=== PATIENT | female | born 1935 | race Caucasian/White ===

== ENCOUNTER 2016-08-08 20:15 | Inpatient (IN) | payer MEDICARE ==
[2016-08-05 14:32] LABS: CHOL/HDL RATIO(NOT ORDER) 2.3 (0-5)
--- NOTE | ~2016-08-08 | OP ---
Record Of Operation [facility] [address] [place]. [address] NAME: SANTOS GALLEGO : 33 STATUS : ADM IN PAT#: [id number] AGE: 81 ADM/REG DATE : 08/08/16 MR#: [id number] REPORT SERV DATE: 08/12/16 DICTATED BY: DEBBIE HORTON JR. DATE: 08/12/16 REPORT STATUS : Draft TRANSCRIBED BY: MODL DATE: 08/12/16 DATE OF PROCEDURE: 08/12/2016 SURGEON: Debbie Horton M.D. YARN CLEANER: Mike Lloyd. PROCEDURE: Laparoscopic cholecystectomy. PREOPERATIVE DIAGNOSIS: Cholecystitis. POSTOPERATIVE DIAGNOSIS: Cholecystitis. ANESTHESIA: General. INDICATIONS: This patient has history of abdominal pain. She has an abnormal HIDA scan, and cholecystectomy is indicated. She does have significant cardiac disease, was actually admitted by our aircraft fuselage framer . Cardiac function is in optimal condition, and she is ready for surgery. She had been on anticoagulation but this was reversed. FINDINGS: On laparoscopic examination of abdomen, there is evidence of inflammation of gallbladder, both acute and chronic. It was removed successfully, and the liver does have a somewhat congested appearance consistent with her cardiac disease, and no other apparent abnormalities were identified. PROCEDURE: With adequate general anesthesia, the patient was placed in supine position. The abdomen was prepped and draped sterilely. About 0.5% Marcaine was used for local infiltration of all trocar sites. An infraumbilical incision was made. The dissection was carried down sharply through the subcutaneous tissues. The fascia and perineum were opened. The peritoneum cavity was entered, and a balloon-tipped trocar was introduced. The abdomen was insufflated with CO2. The laparoscope was introduced with the above-noted findings. Under direct vision, a 12 mm trocar was placed in the epigastric region and then two 5 mm trocars in the subcostal region. The gallbladder was identified, grasped, retracted in a cephalad manner. The cystic duct and artery were identified, doubly clipped and divided. The gallbladder was removed from its bed with electrocautery. It was extracted and submitted to Pathology. Bleeding within the bed was controlled with electrocautery and Surgiflo. It was irrigated thoroughly with saline. There was no evidence of any bleeding or bile leak. Then, all trocars were removed under direct vision. The umbilical site and the epigastric site were closed at the fascial layer with [id number] 0 PDS. All wounds were then closed with dermal Monocryl. Sterile dressings were applied. The patient left the operating room in satisfactory condition. ESTIMATED BLOOD LOSS: 10 mL. Record Of Operation [address] [address] NAME: SANTOS GALLEGO : 33 STATUS : ADM IN [facility]#: [id number] AGE: 81 ADM/REG DATE : 08/08/16 MR#: [id number] REPORT SERV DATE: 08/12/16 DICTATED BY: DEBBIE HORTON JR. DATE: 08/12/16 REPORT STATUS : Draft TRANSCRIBED BY: NANCY DATE: 08/12/16 HUEY/NANCY Debbie Horton Jr., M.D. / [id number] CC: Isabel Wayne PA
--- NOTE | ~2016-08-08 | DS ---
Discharge Summary [address] [place]. [address] NAME: SANTOS GALLEGO : 33 STATUS : DIS IN PAT#: [id number] AGE: 81 ADM/REG DATE : 08/08/16 MR#: [id number] REPORT SERV DATE: 08/26/16 DICTATED BY: BREEZY HAIR DATE: 08/25/16 REPORT STATUS : Draft TRANSCRIBED BY: MODGallito DATE: 08/25/16 Data Collection from hospitalization DISCHARGE DIAGNOSES: 1. Ischemic cardiomyopathy. 2. Paroxysmal atrial fibrillation. 3. Left bundle-branch block. 4. Nonsustained ventricular tachycardia. 5. Cholecystitis status post laparoscopic cholecystectomy. 6. History of transient ischemic attack. 7. Chronic systolic congestive heart failure. CONSULTATION: Dr. Guero Knight. PROCEDURES PERFORMED: Laparoscopic cholecystectomy, 08/12/2016. PATHOLOGY: Gallbladder, cholecystectomy-minimal histologic changes. See description. DISCHARGE MEDICATIONS: Cordarone 200 mg twice a day, aspirin 81 mg every morning, Lipitor 20 mg at bedtime, Bumex 1 mg twice a day, vitamin D3 1000 units every evening, vitamin B12 1000 mcg every 30 days as instructed, Boniva 150 mg every 30 days as instructed, Synthroid 50 mcg before breakfast, Lopressor 50 mg twice a day, multivitamins with minerals one tablet every evening, Debrox wax removal one dose OT daily as needed, Jantoven 4 mg every evening. CONDITION AT DISCHARGE: Stable. DISPOSITION: The patient was discharged home on a low-sodium diet with activities as instructed. She would follow up with Dr. Chano Duckworth seven days following discharge. She would follow up with Dr. Breezy Hair three to four weeks following discharge. She was to follow up in the [facility] every two to three weeks following discharge. HOSPITAL COURSE: This is an 81-year-old female, who I recently saw on 08/05/2016 with complaints of increased shortness of breath and lower extremity edema. The plan was to have the patient better rate control by switching her from carvedilol to metoprolol and postpone her elective cholecystectomy until she could be improved. She presented to the hospital when she had increasing shortness of breath to the point where she felt like she could not breathe at all and had increased lower extremity edema. Overnight, she was diuresed with Bumex and had a good urine output at 1.6 L. She felt like her heart rate was better controlled. She was less short of breath and her lower extremity edema had improved. She was admitted to the hospital at this time for further evaluation and treatment. Upon admission, she was felt to have esmfm-zt-hvmnizk systolic heart failure and persistent atrial fibrillation. She has hypokalemia and acute kidney insufficiency. She has a supratherapeutic INR level. She has hypothyroidism with mildly subtherapeutic levothyroxine. Echocardiogram was recommended to re-evaluate her left ventricular systolic function. IV Bumex was going to be continued for diuresis. She was going to be changed to metoprolol succinate. Electrolyte replacement protocol was going to be arranged. She was going to undergo cardioversion in hopes of restoring sinus rhythm and further improving her Discharge Summary [address] [place]. [address] NAME: SANTOS GALLEGO : 33 STATUS : DIS IN PAT#: [id number] AGE: 81 ADM/REG DATE : 08/08/16 MR#: [id number] REPORT SERV DATE: 08/26/16 DICTATED BY: BREEZY HAIR DATE: 08/25/16 REPORT STATUS : Draft TRANSCRIBED BY: NANCY DATE: 08/25/16 symptoms. We would titrate the warfarin. The following day, an echocardiogram was performed. Coumadin was being held. She has 1+ bilateral lower extremity edema. IV Bumex was continued. INR level was 3.7. Levothyroxine was increased. On the , she was seen by Dr. Guero Knight. She had complained of abdominal pain. She had an abnormal HIDA scan and it was felt that cholecystectomy was indicated. She was felt to have cholecystitis. Treatment options were discussed and it was elected to proceed with surgical intervention. On the , the patient was taken to the operating room by Dr. Guero Knight, where she underwent the above-mentioned procedure. She tolerated this well and there were no complications. Over the next couple of days, she continued to progress. INR level was 1.8. Discharge planning was performed. IV amiodarone was stopped. She was changed to oral maintenance. Gentle diuresis was being performed. On 08/14/2016, she was alert and cooperative. Discharge instructions were given. Due to her improved and stable condition, she was discharged home with the above-stated instructions. Information collected by: Annabel Verma I submit the above information as my discharge summary. BRITTA/NANCY Breezy Hair M.D. / [id number] CC: Isabel Wayne M.D. John Gwin Jr., M.D.
--- NOTE | ~2016-08-08 | HP ---
History And Physical [address] [place]. [address] NAME: SANTOS GALLEGO : 33 STATUS : ADM Farhat PAT#: [id number] AGE: 81 ADM/REG DATE : 08/08/16 MR#: [id number] REPORT SERV DATE: 08/09/16 DICTATED BY: DATE: REPORT STATUS : Draft TRANSCRIBED BY: MODL DATE: 08/09/16 DATE OF ADMISSION: 08/08/2016 CHIEF COMPLAINT/REASON FOR ADMISSION: Atrial fibrillation and congestive heart failure. PRIMARY YARN MAN: Breezy Hair M.D. HISTORY OF PRESENT ILLNESS: Mrs. Gallego is a very pleasant 81-year-old female, who recently saw Dr. Hair on 08/05 with complaints of increased shortness of breath and lower extremity edema. The plan was to have the patient better rate controlled, switching her from carvedilol to metoprolol, and postpone her elective cholecystectomy until she can be improved. She presented to the hospital when she had increasing shortness of breath to the point where she felt like she could not breathe at all and increased lower extremity edema. Overnight, she was diuresed with Bumex with a good urine output of 1.6 L. she feels like her heart rate is better controlled, she is less short of breath, and her lower extremity edema has improved. PAST MEDICAL HISTORY: 1. Persistent atrial fibrillation. 2. Long-term use of anticoagulants. 3. Coronary artery disease with 75% first ostial stenosis. 4. Hyperlipidemia. 5. Chronic systolic heart failure with an ejection fraction of 31% in 08/2015. 6. History of TIA. 7. Left bundle-branch block. SOCIAL HISTORY: The patient is . She does not smoke, drink, or use extracurricular drugs. FAMILY HISTORY: Noncontributory. ALLERGIES: NO KNOWN DRUG ALLERGIES. OUTPATIENT MEDICATIONS: Include: 1. Aspirin 81 mg p.o. daily. 2. Atorvastatin 20 mg p.o. daily. 3. Metoprolol 50 mg p.o. b.i.d. 4. Hydrochlorothiazide. 5. Jantoven. 6. Ramipril 5 mg p.o. daily. REVIEW OF SYSTEMS: All systems were reviewed and are negative, except that the patient complains of decreased appetite. She denies any chest pain. There was no orthopnea or paroxysmal nocturnal dyspnea. All other systems were reviewed and are negative. History And Physical [address] [address] NAME: SANTOS GALLEGO : 33 STATUS : ADM Farhat PAT#: [id number] AGE: 81 ADM/REG DATE : 08/08/16 MR#: [id number] REPORT SERV DATE: 08/09/16 DICTATED BY: DATE: REPORT STATUS : Draft TRANSCRIBED BY: MODL DATE: 08/09/16 PHYSICAL EXAMINATION: VITAL SIGNS: Blood pressure has ranged from 119 to 120 over 67 to 78, respirations 18, pulses range from 103 to 114 beats per minute, oxygen saturation is 99% on 2 L nasal cannula. GENERAL: Ms. Gallego is a cachectic 81-year-old female. She is currently able to lie flat, in no acute distress. NECK: No jugular venous distention. No carotid bruits. HEART: Irregular, rate controlled. Soft S1 and S2. I could not appreciate murmurs, rubs, or gallops. LUNGS: Clear to auscultation in all gong. ABDOMEN: Soft and nontender. EXTREMITIES: There is +1 edema at the ankles bilaterally. MUSCULOSKELETAL: No clubbing or cyanosis of the digits. NEUROLOGIC: The patient appears fatigued without focal neurologic deficits. REVIEW OF TEST RECORDS AND MEDICAL DECISION MAKING: Potassium 2.8, replaced and is now 3.7; sodium 140; BUN 35; creatinine 1.13; glucose 105. BNP on admission is 2841. TSH is 6.6. Hemoglobin 11.8, hematocrit 34.1, platelet count is 216. An EKG performed on admission documented atrial fibrillation with rapid ventricular response at 120 beats per minute. There is a left bundle-branch block present. This is without significant change from a previous EKG performed in clinic on 08/05/2016. A chest x-ray performed on admission demonstrated cardiomegaly. There was mild central congestion, but there was no evidence of any pleural effusions present. IMPRESSION REPORT AND PLAN: 1. Acute on chronic systolic heart failure. 2. Persistent atrial fibrillation. 3. Hypokalemia. 4. Acute kidney insufficiency. 5. Supratherapeutic INR. 6. Hypothyroidism with mildly subtherapeutic levothyroxine. 7. Hyperlipidemia. RECOMMENDATIONS: 1. Would recommend echocardiogram to re-evaluate her left ventricular systolic function. 2. Continue diuresis with Bumex 2 mg IV twice per day. 3. Would change the patient to metoprolol succinate in light of her decreased systolic function, we will continue her home dose at 50 mg twice per day. 4. We will arrange for electrolyte replacement protocol. 5. We will arrange for cardioversion in hopes of restoring sinus rhythm and further improving the patient's symptoms. 6. Titrate warfarin for goal INR of 2 to 3. 7. Additional recommendations pending clinical course. It has been my pleasure to participate in the care of this pleasant lady. History And Physical [address] [place]. [address] NAME: SANTOS GALLEGO : 33 STATUS : ADM Farhat PAT#: [id number] AGE: 81 ADM/REG DATE : 08/08/16 MR#: [id number] REPORT SERV DATE: 08/09/16 DICTATED BY: DATE: REPORT STATUS : Draft TRANSCRIBED BY: NANCY DATE: 08/09/16 [facility]/NANCY Hazel Moore M.D. / [id number] CC: Isabel Wayne M.D.
[2016-08-08 19:53] LABS: BASOPHILS 0.1 %; BASOPHILS ABSOLUTE 0.01 10/3/uL (0.0-0.16); EOSINOPHILS 0.9 %; EOSINOPHILS ABSOLUTE 0.06 10/3/uL (0.0-0.53); HEMATOCRIT 36.7 % (36.0-48.0); HEMOGLOBIN 12.7 g/dL (12.0-16.0); IMMATURE GRANULOCYTES 0.1 %; IMMATURE GRANULOCYTES ABSOLUTE 0.01 10/3/uL (0.0-0.11); LYMPHOCYTES 30.1 %; LYMPHOCYTES ABSOLUTE 2.08 10/3/uL (0.67-4.30); MEAN CORPUS HGB CONC 34.6 g/dL (32.0-36.0); MEAN CORPUSCULAR HEMOGLOB 32.8 pg (26.0-34.0); MEAN CORPUSCULAR VOLUME 94.8 fL (80-100); MEAN PLATELET VOLUME 10.8 fL (9.2-13.0); MONOCYTES 11.7 %; MONOCYTES ABSOLUTE 0.81 10/3/uL (0.21-1.20); NEUTROPHILS 57.1 %; NEUTROPHILS ABSOLUTE 3.93 10/3/uL (2.02-8.40); PLATELET COUNT 252 10/3/uL (150-400); RBC DISTRIBUTION WIDTH 16.1 % (12.0-16.0); RED CELL COUNT 3.87 10/6/uL (4.0-5.6); WHITE BLOOD CELLS 6.9 10/3/uL (4.5-10.5)
[2016-08-08 19:55] LABS: MANUAL DIFF NO %
[2016-08-08 20:01] LABS: INTERNATIONAL NORMAL RATI 3.7 UNITS (-); PARTIAL THROMBO TIME 39.5 SEC (22.5-37.2); PROTIME (NOT ORD) 36.3 SEC (12.0-14.5)
[2016-08-08 20:14] LABS: CALCIUM, SERUM 9.5 MG/DL (8.5-10.4); CHEST PAIN PROFILE TAT 0 Hrs 25 Mins; CHLORIDE, SERUM 99 MMOL/L (96-112); GFR AFRICAN AMERICAN 38 ML/MIN (>=60); GFR NON AFRICAN AMERICAN 33 ML/MIN (>=60); GLUCOSE, SERUM 112 MG/DL (60-99); POTASSIUM, SERUM 4.1 MMOL/L (3.5-5.3); SODIUM, SERUM 138 MMOL/L (135-148); TROPONIN I 0.04 NG/ML (<0.05)
[2016-08-08 20:15] LABS: BUN (BLOOD UREA NITROGEN) 39 MG/DL (6-23); CO2 (CARBON DIOXIDE) 24 MMOL/L (24-34); CREATININE 1.46 MG/DL (0.55-1.02)
[~2016-08-08 20:15] MED LIST: ALTA5 PO; B121000P IM/SC; BONIVA150 MG PO; CARBAMIDE PEROXIDE OT; HALF81 PO; JANTOVEN4 MG PO; L20 PO; LIPITOR20 PO; LOP50 PO; MULTIVIT/MIN PO; SYN.05 PO; VITAMIN D31000 UNIT PO
[2016-08-08 21:30] LABS: ASCORBIC ACID (UR NOT ORDER) NEG (NEG); BILIRUBIN, URINE NEGATIVE (NEG); ER URINALYSIS TAT 0 Hrs 08 Mins; KETONE, URINE NEGATIVE (NEG); LEUKOCYTE ESTERASE(NOT OR LARGE (NEG); NITRITE (URINE) NEG (NEG); WBC (NOT ORDERED) (RFLEX) 24 (0-5)
[2016-08-09 05:49] LABS: BASOPHILS 0 %; EOSINOPHILS 0.2 %; EOSINOPHILS ABSOLUTE 0.01 10/3/uL (0.0-0.53); HEMATOCRIT 34.1 % (36.0-48.0); HEMOGLOBIN 11.8 g/dL (12.0-16.0); IMMATURE GRANULOCYTES 0.2 %; IMMATURE GRANULOCYTES ABSOLUTE 0.01 10/3/uL (0.0-0.11); LYMPHOCYTES 22.8 %; LYMPHOCYTES ABSOLUTE 1.43 10/3/uL (0.67-4.30); MEAN CORPUS HGB CONC 34.6 g/dL (32.0-36.0); MEAN CORPUSCULAR HEMOGLOB 32.4 pg (26.0-34.0); MEAN CORPUSCULAR VOLUME 93.7 fL (80-100); MEAN PLATELET VOLUME 10.2 fL (9.2-13.0); MONOCYTES ABSOLUTE 0.63 10/3/uL (0.21-1.20); NEUTROPHILS 66.8 %; NEUTROPHILS ABSOLUTE 4.19 10/3/uL (2.02-8.40); PLATELET COUNT 216 10/3/uL (150-400); RBC DISTRIBUTION WIDTH 15.7 % (12.0-16.0); RED CELL COUNT 3.64 10/6/uL (4.0-5.6); WHITE BLOOD CELLS 6.3 10/3/uL (4.5-10.5)
[2016-08-09 05:53] LABS: MANUAL DIFF NO %
[2016-08-09 06:04] LABS: CALCIUM, SERUM 9.1 MG/DL (8.5-10.4); CHLORIDE, SERUM 100 MMOL/L (96-112); CO2 (CARBON DIOXIDE) 25 MMOL/L (24-34); CREATININE 1.13 MG/DL (0.55-1.02); GFR AFRICAN AMERICAN 52 ML/MIN (>=60); GFR NON AFRICAN AMERICAN 45 ML/MIN (>=60); GLUCOSE, SERUM 105 MG/DL (60-99); SODIUM, SERUM 140 MMOL/L (135-148)
[2016-08-09 06:08] LABS: BUN (BLOOD UREA NITROGEN) 35 MG/DL (6-23); POTASSIUM, SERUM 2.8 MMOL/L (3.5-5.3)
[2016-08-10 06:19] LABS: BASOPHILS 0.1 %; BASOPHILS ABSOLUTE 0.01 10/3/uL (0.0-0.16); EOSINOPHILS 0.5 %; EOSINOPHILS ABSOLUTE 0.04 10/3/uL (0.0-0.53); HEMOGLOBIN 12.7 g/dL (12.0-16.0); IMMATURE GRANULOCYTES 0.1 %; IMMATURE GRANULOCYTES ABSOLUTE 0.01 10/3/uL (0.0-0.11); LYMPHOCYTES ABSOLUTE 1.91 10/3/uL (0.67-4.30); MEAN CORPUS HGB CONC 33.8 g/dL (32.0-36.0); MEAN CORPUSCULAR HEMOGLOB 32.5 pg (26.0-34.0); MEAN CORPUSCULAR VOLUME 96.2 fL (80-100); MEAN PLATELET VOLUME 11.1 fL (9.2-13.0); MONOCYTES 8.4 %; MONOCYTES ABSOLUTE 0.62 10/3/uL (0.21-1.20); NEUTROPHILS 64.9 %; NEUTROPHILS ABSOLUTE 4.75 10/3/uL (2.02-8.40); PLATELET COUNT 224 10/3/uL (150-400); RBC DISTRIBUTION WIDTH 16.2 % (12.0-16.0); RED CELL COUNT 3.91 10/6/uL (4.0-5.6); WHITE BLOOD CELLS 7.3 10/3/uL (4.5-10.5)
[2016-08-10 06:20] LABS: HEMATOCRIT 37.6 % (36.0-48.0); MANUAL DIFF NO %
[2016-08-10 06:27] LABS: INTERNATIONAL NORMAL RATI 3.1 UNITS (-); PROTIME (NOT ORD) 31.9 SEC (12.0-14.5)
[2016-08-10 06:36] LABS: CALCIUM, SERUM 9.1 MG/DL (8.5-10.4); CHLORIDE, SERUM 98 MMOL/L (96-112); CREATININE 1.12 MG/DL (0.55-1.02); GFR AFRICAN AMERICAN 53 ML/MIN (>=60); GFR NON AFRICAN AMERICAN 45 ML/MIN (>=60); GLUCOSE, SERUM 103 MG/DL (60-99); POTASSIUM, SERUM 3.3 MMOL/L (3.5-5.3); SODIUM, SERUM 142 MMOL/L (135-148)
[2016-08-10 06:39] LABS: BUN (BLOOD UREA NITROGEN) 30 MG/DL (6-23); CO2 (CARBON DIOXIDE) 31 MMOL/L (24-34)
[2016-08-10 09:59] LABS: FREE T4 2.24 NG/DL (0.76-1.46)
[2016-08-10 10:02] LABS: ULTRASENSITIVE TSH 4.86 MCIU/ML (0.358-3.740)
[2016-08-11 07:37] LABS: INTERNATIONAL NORMAL RATI 3.8 UNITS (-); PROTIME (NOT ORD) 37.1 SEC (12.0-14.5)
[2016-08-11 07:41] LABS: CALCIUM, SERUM 9.2 MG/DL (8.5-10.4); CHLORIDE, SERUM 98 MMOL/L (96-112); POTASSIUM, SERUM 3.9 MMOL/L (3.5-5.3); SODIUM, SERUM 136 MMOL/L (135-148)
[2016-08-11 07:42] LABS: BUN (BLOOD UREA NITROGEN) 34 MG/DL (6-23); CO2 (CARBON DIOXIDE) 23 MMOL/L (24-34); CREATININE 1.83 MG/DL (0.55-1.02); GFR AFRICAN AMERICAN 29 ML/MIN (>=60); GFR NON AFRICAN AMERICAN 25 ML/MIN (>=60); GLUCOSE, SERUM 137 MG/DL (60-99)
[2016-08-12 04:32] LABS: INTERNATIONAL NORMAL RATI 2.7 UNITS (-); PROTIME (NOT ORD) 28.7 SEC (12.0-14.5)
[2016-08-12 04:46] LABS: A/G RATIO 1.2 (0.7-1.9); ALBUMIN 3.3 G/DL (3.5-5.0); ALKALINE PHOSPHATASE 66 U/L (45-117); CALCIUM, SERUM 8.6 MG/DL (8.5-10.4); CHLORIDE, SERUM 95 MMOL/L (96-112); CO2 (CARBON DIOXIDE) 23 MMOL/L (24-34); CREATININE 2.04 MG/DL (0.55-1.02); GFR AFRICAN AMERICAN 25 ML/MIN (>=60); GFR NON AFRICAN AMERICAN 22 ML/MIN (>=60); GLOBULIN 2.7 G/DL (2.5-4.1); GLUCOSE, SERUM 124 MG/DL (60-99); POTASSIUM, SERUM 3.8 MMOL/L (3.5-5.3); SGOT(AST) 892 U/L (5-40); SGPT(ALT) 1072 U/L (5-65); SODIUM, SERUM 133 MMOL/L (135-148); TOTAL BILIRUBIN 3.7 MG/DL (0-1.2)
[2016-08-12 04:47] LABS: BUN (BLOOD UREA NITROGEN) 46 MG/DL (6-23)
[2016-08-12 04:56] LABS: BASOPHILS 0.1 %; BASOPHILS ABSOLUTE 0.01 10/3/uL (0.0-0.16); EOSINOPHILS 0.1 %; EOSINOPHILS ABSOLUTE 0.01 10/3/uL (0.0-0.53); HEMATOCRIT 36.9 % (36.0-48.0); HEMOGLOBIN 12.5 g/dL (12.0-16.0); IMMATURE GRANULOCYTES 0.2 %; IMMATURE GRANULOCYTES ABSOLUTE 0.02 10/3/uL (0.0-0.11); LYMPHOCYTES 14.9 %; LYMPHOCYTES ABSOLUTE 1.68 10/3/uL (0.67-4.30); MEAN CORPUS HGB CONC 33.9 g/dL (32.0-36.0); MEAN CORPUSCULAR HEMOGLOB 32.3 pg (26.0-34.0); MEAN CORPUSCULAR VOLUME 95.3 fL (80-100); MEAN PLATELET VOLUME 11.3 fL (9.2-13.0); MONOCYTES 7.5 %; MONOCYTES ABSOLUTE 0.85 10/3/uL (0.21-1.20); NEUTROPHILS 77.2 %; PLATELET COUNT 186 10/3/uL (150-400); RBC DISTRIBUTION WIDTH 16.5 % (12.0-16.0); RED CELL COUNT 3.87 10/6/uL (4.0-5.6)
[2016-08-12 04:57] LABS: WHITE BLOOD CELLS 11.3 10/3/uL (4.5-10.5)
[2016-08-12 04:58] LABS: MANUAL DIFF NO %
[2016-08-12 14:53] LABS: INTERNATIONAL NORMAL RATI 2.6 UNITS (-); PROTIME (NOT ORD) 27.5 SEC (12.0-14.5)
[2016-08-12 16:35] LABS: INTERNATIONAL NORMAL RATI 1.8 UNITS (-); PARTIAL THROMBO TIME 32.6 SEC (22.5-37.2); PROTIME (NOT ORD) 21.1 SEC (12.0-14.5)
[2016-08-13 04:52] LABS: BASOPHILS 0 %; EOSINOPHILS 0.1 %; EOSINOPHILS ABSOLUTE 0.01 10/3/uL (0.0-0.53); HEMATOCRIT 39.8 % (36.0-48.0); HEMOGLOBIN 13.7 g/dL (12.0-16.0); IMMATURE GRANULOCYTES 0.3 %; IMMATURE GRANULOCYTES ABSOLUTE 0.03 10/3/uL (0.0-0.11); LYMPHOCYTES 13.8 %; LYMPHOCYTES ABSOLUTE 1.38 10/3/uL (0.67-4.30); MEAN CORPUS HGB CONC 34.4 g/dL (32.0-36.0); MEAN CORPUSCULAR HEMOGLOB 32.9 pg (26.0-34.0); MEAN CORPUSCULAR VOLUME 95.7 fL (80-100); MEAN PLATELET VOLUME 11.6 fL (9.2-13.0); MONOCYTES 6.8 %; MONOCYTES ABSOLUTE 0.68 10/3/uL (0.21-1.20); PLATELET COUNT 188 10/3/uL (150-400); RBC DISTRIBUTION WIDTH 16.5 % (12.0-16.0); RED CELL COUNT 4.16 10/6/uL (4.0-5.6)
[2016-08-13 05:03] LABS: MANUAL DIFF NO %
[2016-08-13 05:05] LABS: ALKALINE PHOSPHATASE 71 U/L (45-117); BUN (BLOOD UREA NITROGEN) 45 MG/DL (6-23); CALCIUM, SERUM 7.9 MG/DL (8.5-10.4); CHLORIDE, SERUM 98 MMOL/L (96-112); CREATININE 1.84 MG/DL (0.55-1.02); GFR AFRICAN AMERICAN 29 ML/MIN (>=60); GFR NON AFRICAN AMERICAN 25 ML/MIN (>=60); GLOBULIN 2.9 G/DL (2.5-4.1); GLUCOSE, SERUM 104 MG/DL (60-99); POTASSIUM, SERUM 3.4 MMOL/L (3.5-5.3); SGOT(AST) 735 U/L (5-40); SGPT(ALT) 972 U/L (5-65); SODIUM, SERUM 139 MMOL/L (135-148); TOTAL PROTEIN 5.9 G/DL (6.0-8.5)
[2016-08-13 05:12] LABS: CO2 (CARBON DIOXIDE) 28 MMOL/L (24-34); TOTAL BILIRUBIN 2.1 MG/DL (0-1.2)
[2016-08-13 05:17] LABS: INTERNATIONAL NORMAL RATI 1.7 UNITS (-); PROTIME (NOT ORD) 20.1 SEC (12.0-14.5)
[2016-08-14 04:59] LABS: BASOPHILS 0 %; EOSINOPHILS 0.7 %; EOSINOPHILS ABSOLUTE 0.05 10/3/uL (0.0-0.53); HEMOGLOBIN 13.2 g/dL (12.0-16.0); IMMATURE GRANULOCYTES 0.1 %; IMMATURE GRANULOCYTES ABSOLUTE 0.01 10/3/uL (0.0-0.11); LYMPHOCYTES 18.6 %; MEAN CORPUS HGB CONC 33.8 g/dL (32.0-36.0); MEAN CORPUSCULAR HEMOGLOB 32.8 pg (26.0-34.0); MEAN PLATELET VOLUME 11.2 fL (9.2-13.0); MONOCYTES 8.8 %; MONOCYTES ABSOLUTE 0.66 10/3/uL (0.21-1.20); NEUTROPHILS 71.8 %; NEUTROPHILS ABSOLUTE 5.41 10/3/uL (2.02-8.40); PLATELET COUNT 156 10/3/uL (150-400); RBC DISTRIBUTION WIDTH 16.8 % (12.0-16.0); RED CELL COUNT 4.02 10/6/uL (4.0-5.6); WHITE BLOOD CELLS 7.5 10/3/uL (4.5-10.5)
[2016-08-14 05:02] LABS: MANUAL DIFF NO %
[2016-08-14 05:06] LABS: INTERNATIONAL NORMAL RATI 1.8 UNITS (-); PROTIME (NOT ORD) 20.7 SEC (12.0-14.5)
[2016-08-14 05:22] LABS: A/G RATIO 1.1 (0.7-1.9); ALKALINE PHOSPHATASE 71 U/L (45-117); BUN (BLOOD UREA NITROGEN) 46 MG/DL (6-23); CALCIUM, SERUM 8.4 MG/DL (8.5-10.4); CHLORIDE, SERUM 100 MMOL/L (96-112); CO2 (CARBON DIOXIDE) 30 MMOL/L (24-34); CREATININE 1.53 MG/DL (0.55-1.02); GFR AFRICAN AMERICAN 36 ML/MIN (>=60); GFR NON AFRICAN AMERICAN 31 ML/MIN (>=60); GLOBULIN 2.7 G/DL (2.5-4.1); GLUCOSE, SERUM 86 MG/DL (60-99); POTASSIUM, SERUM 3.4 MMOL/L (3.5-5.3); SGOT(AST) 430 U/L (5-40); SGPT(ALT) 566 U/L (5-65); SODIUM, SERUM 141 MMOL/L (135-148); TOTAL BILIRUBIN 1.9 MG/DL (0-1.2); TOTAL PROTEIN 5.7 G/DL (6.0-8.5)
[2016-08-14] MEDS ORDERED: CORDARONE PO (13:45)
[2016-08-14] MEDS ORDERED: BUM1 PO (13:46)
[2017-01-17] MEDS ORDERED: ELIQUIS 5 MG TAB5 MG PO (10:18)
[2017-01-17] MEDS ORDERED: VITAMIN D31000 UNIT PO (10:43)
[2017-01-17] MEDS ORDERED: LEVOTHYROXIN25 MCG PO (10:44)
[2017-01-17] MEDS ORDERED: LOP50 PO (10:46)
[2017-01-18] MEDS ORDERED: PLAVIX PO (16:21)
[2017-01-19] MEDS ORDERED: NITROSTAT0.4 MG SL (11:16)
== END 2016-08-14 16:00 | disposition home or self-care (01) | DRG 987 ==
LOC: ER 20:15 → 5NO 22:28 → IMCU 08-12 21:13 → 7NO 08-13 17:21
PROVIDERS: Anesthesiology; Emergency Medicine; Internal Medicine; Internal Medicine Cardiovascular Disease; Nurse Practitioner Acute Care; Specialist
PROC: 0FT44ZZ Resection of Gallbladder, Percutaneous Endoscopic Approach (ICD-10-PCS; 2016-08-12)
PROC: 30283B1 Transfusion of Nonautologous 4-Factor Prothrombin Complex Concentrate into Vein, Percutaneous Approach (ICD-10-PCS; principal; 2016-08-13)
DX: I48.1 Persistent atrial fibrillation (principal); I50.23 Acute on chronic systolic (congestive) heart failure; K81.0 Acute cholecystitis; I44.7 Left bundle-branch block, unspecified; K81.1 Chronic cholecystitis; E87.6 Hypokalemia; E03.9 Hypothyroidism, unspecified; E78.5 Hyperlipidemia, unspecified; Z86.73 Personal history of transient ischemic attack (TIA), and cerebral infarction without residual deficits; Z79.01 Long term (current) use of anticoagulants; Z79.82 Long term (current) use of aspirin
CPT/HCPCS: 36415; 71010; 80048; 80053; 80061; 81001; 82150; 83690; 83735; 83880; 84132; 84439; 84443; 84481; 84484; 85025; 85610; 85730; 87077; 87086; 87186; 87641; 88304; 93005; 99285; A9270-GY; C8929; C9132; G0463; J0282; J0690; J1170; J2405; J2710; J3010; J3430; Q9957

== ENCOUNTER 2016-09-06 11:37 | Inpatient (IN) | payer MEDICARE ==
--- NOTE | ~2016-09-06 | DS ---
Discharge Summary [id number] [facility] [place]. [address] NAME: SANTOS GALLEGO : 33 STATUS : DIS IN PAT#: [id number] AGE: 81 ADM/REG DATE : 09/06/16 MR#: [id number] REPORT SERV DATE: 09/09/16 DICTATED BY: DATE: REPORT STATUS : Draft TRANSCRIBED BY: MODL DATE: 09/08/16 ADMISSION DATE: 09/06/2016 DISCHARGE DATE: 09/08/2016 DISCHARGE DIAGNOSES: 1. Coumadin toxicity. 2. Left forearm hematoma. 3. Ischemic cardiomyopathy with ejection fraction of 10% to 15%. 4. Chronic kidney disease level 3. 5. Chronic systolic heart failure. 6. Pernicious anemia. 7. Hyperlipidemia. PROCEDURES AND IMAGIN. 09/06/2016 x-ray of the left forearm showed negative left forearm. 2. 09/06/2016 chest x-ray showed stable appearance of cardiomegaly with no acute process. 3. 09/06/2016 venous Doppler of left upper extremity showed no evidence of deep venous thrombosis. 4. CT of left upper extremity showed minimal edema posterior to the elbow. HOSPITAL COURSE: Please refer to H and P dictated by Dr. Elodia Mora for complete details regarding the patient's admission. In brief, the patient was admitted by Dr. Mora for initial workup and management of her left arm pain. The patient has had uncomplicated hospital course. The patient had been admitted in the hospital in July for a cholecystectomy and during that time, her ejection fraction dropped from 35 to 10 to 15. The patient takes Coumadin for atrial fibrillation. Upon admission, it was discovered that her INR was 15.7 and her INR has continued to trend down from 15.7 to 6.5 and currently is 3.0. We are changing her to a NOAC of Eliquis 2.5 mg p.o. b.i.d. based on her weight of 40 kg and her age of 81 due to her chronic atrial fibrillation. The patient is also on amiodarone and metoprolol for her chronic atrial fibrillation. The patient has pernicious anemia, for which she receives B12 shots. Her hemoglobin during her admission has been 12.8, then 10.4 and today, it was 10.3. Due to her Coumadin toxicity, stool for occult blood was obtained today, which was negative. She will have followup for labs with her primary care provider, Dr. Madden in the next two weeks. The patient's last echocardiogram during her admission in July showed ischemic cardiomyopathy and chronic systolic heart failure with ejection fraction of 10% to 15%. The patient is aware of this and she does state that she has occasional shortness of breath with exertion. LABORATORY DATA: The patient's current labs; sodium is 144, potassium is 3.8, chloride is 106, BUN is 18, creatinine is 1.22, GFR is 47, glucose is 95, calcium is 8.8, magnesium is 2.2. WBC 6.0, hemoglobin 10.3, hematocrit 30.7, platelets 169, and INR 3.0. PHYSICAL EXAMINATION: VITAL SIGNS: The patient's blood pressure is 99/47, heart rate is 59, O2 saturation is 98% on room air, temperature is 98.2, and respirations are 18. HEENT: Head is atraumatic, normocephalic. Pupils are equal, round, reactive to light and Discharge Summary [address] [address] NAME: SANTOS GALLEGO : 33 STATUS : DIS IN PAT#: [id number] AGE: 81 ADM/REG DATE : 09/06/16 MR#: [id number] REPORT SERV DATE: 09/09/16 DICTATED BY: DATE: REPORT STATUS : Draft TRANSCRIBED BY: NANCY DATE: 09/08/16 accommodation. Good dentition. NECK: Supple with no obvious thyromegaly or lymphadenopathy. Neck veins are flat. CARDIAC: The patient is in a regular bradycardic rhythm. LUNGS: Clear to auscultation with normal respiratory effort, anteriorly and posteriorly. GI: Abdomen is soft, nontender, with active bowel sounds in all four quadrants. Normal bowel habitus. No palpable organomegaly. EXTREMITIES: No significant edema, clubbing, or cyanosis. Dorsalis pedis and posterior tibial pulses are palpable bilaterally. MUSCULOSKELETAL: The patient moves all extremities x4. She is ambulatory without assistance. No difficulties with balance. SKIN: Intact, warm, and dry, normal color and turgor. NEURO/PSYCH: The patient is alert and oriented x4, pleasant cooperative. Cranial nerves 2 through 12 are grossly intact. Affect is bright. No apparent anxiety or depression. DISCHARGE MEDICATIONS: Eliquis 2.5 mg p.o. twice daily for stroke prevention, atorvastatin 20 mg daily, amiodarone 200 mg twice daily, Bumex 1 mg twice daily, levothyroxine 50 mcg daily, metoprolol 50 mg twice daily, Boniva 150 mg every 30 days, vitamin B12 1000 mcg every 30 days, aspirin 81 mg daily, Caltrate one tablet daily, [place]-3 1200 mg daily, Centrum daily, vitamin D 1000 units daily, and Refresh Tears three times a day as needed in both eyes for dryness p.r.n. ALLERGIES: THE PATIENT HAS NO KNOWN DRUG ALLERGIES. DISCHARGE INSTRUCTIONS: The patient is to follow up with her PCP in two weeks where she will get her INR and her CBC checked. Should the patient have any unusual bleeding or pain, she is to call her PCP or present to the emergency department. Approximately 35 minutes has been spent coordinating discharge care of this patient including tyvx-ub-xrtu encounter and summarization of the discharge. SLC/MODL Honye Gillis NP / [id number] CC: Isabel Cyr M.D.
--- NOTE | ~2016-09-06 | HP ---
History And Physical [address] [address] NAME: SANTOS GALLEGO : 33 STATUS : ADM Farhat PAT#: [id number] AGE: 81 ADM/REG DATE : 09/06/16 MR#: [id number] REPORT SERV DATE: 09/06/16 DICTATED BY: JOSE BURNS DATE: 09/06/16 REPORT STATUS : Draft TRANSCRIBED BY: MODL DATE: 09/06/16 DATE OF ADMISSION: 09/06/2016 CHIEF COMPLAINT: Left arm pain. HISTORY OF PRESENT ILLNESS: The patient is a very pleasant 81-year-old white female. She states she was in her usual state of health until yesterday when her left forearm started to hurt then she noticed a streak of what looked like redness along her forearm. She had no fever, no chills. No real other complaints. She was just in the hospital back around 08/20 for acute cholecystitis and a cholecystectomy, which she did well with. She has also noted that her EF had dropped from 35% to 10%-15%. She does have a history of ischemic cardiomyopathy. She takes Coumadin for atrial fibrillation. Her last INR was done prior to discharge from the hospital, it was 1.8. She has been taking 4 mg of Coumadin per day. She was able to move her left arm and her hand, but it is painful when she moves it. PAST MEDICAL HISTORY: 1. Atrial fibrillation, on chronic Coumadin. 2. CAD. 3. Ischemic cardiomyopathy with EF 10%-15%. 4. TIA. 5. Left bundle-branch block. 6. Hypothyroidism. 7. Cholecystitis with history of cholecystectomy recently. 8. Hyperlipidemia. 9. CKD. SOCIAL HISTORY: She is a nonsmoker, nondrinker. She lives with her in . ALLERGIES: NO KNOWN DRUG ALLERGIES. PAST SURGICAL HISTORY: She has had a cholecystectomy, hysterectomy. FAMILY HISTORY: Positive for CAD in multiple family members and a brother. HOME MEDICATIONS: Reviewed and attached. REVIEW OF SYSTEMS: Full 10-point review of systems obtained. Pertinent positives mentioned in the HPI. PHYSICAL EXAMINATION: VITAL SIGNS: BP was initially 98/58, temperature 98.0, pulse 67, respiratory rate 14, sats are 96%. GENERAL: A well-developed white female, in no obvious distress. HEENT: Normocephalic, atraumatic. Throat is clear. NECK: Supple. History And Physical [address] [place]. [address] NAME: SANTOS GALLEGO : 33 STATUS : ADM Farhat PAT#: [id number] AGE: 81 ADM/REG DATE : 09/06/16 MR#: [id number] REPORT SERV DATE: 09/06/16 DICTATED BY: JOSE BURNS DATE: 09/06/16 REPORT STATUS : Draft TRANSCRIBED BY: MODGallito DATE: 09/06/16 HEART: Regular rate and rhythm. LUNGS: Clear to auscultation. ABDOMEN: Soft, nontender, nondistended. She does have her scars from her cholecystectomy present. They are all healed nicely and there is no erythema. EXTREMITIES: Warm and dry skin. She has petechiae scattered about her lower extremities. Then she has what looks like a bruise extending from her wrist up to her forearm just distal to the elbow. It is not warm to the touch. It is tender. She has good pulses both radial and ulnar at her wrist on the left. They are bounding. She is able to squeeze my hand. Appears to have normal movement. LAB AND X-RAY STUDIES: INR is 15.7 and venous Doppler is negative for any blood clot. Basic metabolic panel is normal other than a BUN and creatinine of 23 and 1.62, glucose is 105. LFTs are normal. Chest x-ray is negative. Forearm x-ray does not show a fracture. CBC: Hemoglobin and hematocrit are 12.8 and 38, white count 9.4, platelets 199. ASSESSMENT/PLAN: 1. Coumadin toxicity with what looks like a spontaneous hematoma in the left forearm. She does not have any vascular compromise or any evidence of compartment syndrome. I think the most reasonable thing to do is watch her overnight and correct her supratherapeutic INR. We will give her 5 of vitamin K now. We will monitor her INR daily. We will elevate her arm and apply warm compresses. Provide Tylenol for pain. We will have the nurses check her pulse every four hours. If she has any diminished pulse or change, I have written an order to notify us immediately. In that case, we would need to get Hand Surgery and may be Vascular involved. 2. History of ischemic cardiomyopathy with EF of 10%-15%. Stop IV fluids. Continue home medications including her Bumex and watch patient carefully for volume overload. 3. Coronary artery disease with the drug-eluting stent. 4. Recent cholecystectomy, doing well postop. 5. History of hypertension. 6. History of hyperlipidemia. 7. History of left bundle. 8. History of atrial fibrillation, on chronic warfarin. Holding warfarin and reversing to some degree to get her INR closer to 2. She is currently rate controlled. 9. Deep venous thrombosis prophylaxis. We will skip it since her INR is 15. 10.Disposition pending above. MANOHAR/NANCY Jose Burns M.D. / [id number] CC: Jose Burns M.D. History And Physical [address] [address] NAME: SANTOS GALLEGO : 33 STATUS : ADM Farhat PAT#: [id number] AGE: 81 ADM/REG DATE : 09/06/16 MR#: [id number] REPORT SERV DATE: 09/06/16 DICTATED BY: JOSE BURNS DATE: 09/06/16 REPORT STATUS : Draft TRANSCRIBED BY: MODL DATE: 09/06/16 Chano Duckworth M.D.
[2016-09-06 11:36] LABS: BASOPHILS 0.2 %; BASOPHILS ABSOLUTE 0.02 10/3/uL (0.0-0.16); EOSINOPHILS 0.8 %; EOSINOPHILS ABSOLUTE 0.08 10/3/uL (0.0-0.53); ER CBC TAT 0 Hrs 02 Mins; HEMATOCRIT 38.1 % (36.0-48.0); HEMOGLOBIN 12.8 g/dL (12.0-16.0); IMMATURE GRANULOCYTES 0.2 %; IMMATURE GRANULOCYTES ABSOLUTE 0.02 10/3/uL (0.0-0.11); LYMPHOCYTES 23.3 %; MEAN CORPUS HGB CONC 33.6 g/dL (32.0-36.0); MEAN CORPUSCULAR HEMOGLOB 31.8 pg (26.0-34.0); MEAN CORPUSCULAR VOLUME 94.5 fL (80-100); MEAN PLATELET VOLUME 9.9 fL (9.2-13.0); MONOCYTES ABSOLUTE 0.94 10/3/uL (0.21-1.20); NEUTROPHILS 65.5 %; NEUTROPHILS ABSOLUTE 6.18 10/3/uL (2.02-8.40); PLATELET COUNT 199 10/3/uL (150-400); RED CELL COUNT 4.03 10/6/uL (4.0-5.6); WHITE BLOOD CELLS 9.4 10/3/uL (4.5-10.5)
[2016-09-06 11:37] LABS: MANUAL DIFF NO %
[~2016-09-06 11:37] MED LIST changes: +BUM1 PO; +CORDARONE PO
[2016-09-06 11:52] LABS: ALBUMIN 3.5 G/DL (3.5-5.0); ALKALINE PHOSPHATASE 79 U/L (45-117); CHLORIDE, SERUM 100 MMOL/L (96-112); CO2 (CARBON DIOXIDE) 31 MMOL/L (24-34); CREATININE 1.62 MG/DL (0.55-1.02); GFR AFRICAN AMERICAN 34 ML/MIN (>=60); GFR NON AFRICAN AMERICAN 29 ML/MIN (>=60); POTASSIUM, SERUM 3.8 MMOL/L (3.5-5.3); SGOT(AST) 37 U/L (5-40); SGPT(ALT) 45 U/L (5-65); SODIUM, SERUM 138 MMOL/L (135-148)
[2016-09-06 11:53] LABS: BUN (BLOOD UREA NITROGEN) 23 MG/DL (6-23); CALCIUM, SERUM 9.5 MG/DL (8.5-10.4); GLOBULIN 3.4 G/DL (2.5-4.1); GLUCOSE, SERUM 105 MG/DL (60-99); TOTAL BILIRUBIN 0.9 MG/DL (0-1.2); TOTAL PROTEIN 6.9 G/DL (6.0-8.5)
[2016-09-06 13:04] LABS: INTERNATIONAL NORMAL RATI 15.7 UNITS (-); PROTIME (NOT ORD) 112.5 SEC (12.0-14.5)
[2016-09-06] MEDS ORDERED: BONIVA150 MG PO (14:47)
[2016-09-06] MEDS ORDERED: CORDARONE PO (14:48)
[2016-09-06] MEDS ORDERED: LIPITOR40 PO (14:48)
[2016-09-06] MEDS ORDERED: LOP50 PO (14:49)
[2016-09-06] MEDS ORDERED: BUM1 PO (14:49)
[2016-09-06] MEDS ORDERED: ASAB PO (14:50)
[2016-09-06] MEDS ORDERED: JANTOVEN4 MG PO (14:50)
[2016-09-06] MEDS ORDERED: B121000P IM (14:50)
[2016-09-06] MEDS ORDERED: FISH OIL1200 MG PO (14:51)
[2016-09-06] MEDS ORDERED: CALTRA600D PO (14:51)
[2016-09-06] MEDS ORDERED: VITAMIN D1000 UNI1 PO (14:52)
[2016-09-06] MEDS ORDERED: CENTRUM PO (14:52)
[2016-09-06] MEDS ORDERED: SYN.05 PO (14:53)
[2016-09-06] MEDS ORDERED: REFRESH OPH (14:56)
[2016-09-06 18:25] LABS: PROCALCITONIN 0.06 ng/mL (<0.5)
[2016-09-07 05:35] LABS: BASOPHILS 0.3 %; BASOPHILS ABSOLUTE 0.02 10/3/uL (0.0-0.16); EOSINOPHILS 2.9 %; EOSINOPHILS ABSOLUTE 0.19 10/3/uL (0.0-0.53); HEMATOCRIT 31.3 % (36.0-48.0); HEMOGLOBIN 10.4 g/dL (12.0-16.0); IMMATURE GRANULOCYTES 0.2 %; IMMATURE GRANULOCYTES ABSOLUTE 0.01 10/3/uL (0.0-0.11); INTERNATIONAL NORMAL RATI 6.5 UNITS (-); LYMPHOCYTES 26.7 %; LYMPHOCYTES ABSOLUTE 1.74 10/3/uL (0.67-4.30); MANUAL DIFF NO %; MEAN CORPUS HGB CONC 33.2 g/dL (32.0-36.0); MEAN CORPUSCULAR HEMOGLOB 31.9 pg (26.0-34.0); MONOCYTES 10.4 %; MONOCYTES ABSOLUTE 0.68 10/3/uL (0.21-1.20); NEUTROPHILS 59.5 %; NEUTROPHILS ABSOLUTE 3.88 10/3/uL (2.02-8.40); PLATELET COUNT 170 10/3/uL (150-400); PROTIME (NOT ORD) 56.8 SEC (12.0-14.5); RED CELL COUNT 3.26 10/6/uL (4.0-5.6); WHITE BLOOD CELLS 6.5 10/3/uL (4.5-10.5)
[2016-09-07 05:39] LABS: CALCIUM, SERUM 8.9 MG/DL (8.5-10.4); CHLORIDE, SERUM 104 MMOL/L (96-112); CO2 (CARBON DIOXIDE) 29 MMOL/L (24-34); CREATININE 1.26 MG/DL (0.55-1.02); GFR AFRICAN AMERICAN 46 ML/MIN (>=60); GFR NON AFRICAN AMERICAN 39 ML/MIN (>=60); GLUCOSE, SERUM 103 MG/DL (60-99); POTASSIUM, SERUM 3.5 MMOL/L (3.5-5.3); SODIUM, SERUM 142 MMOL/L (135-148)
[2016-09-07 05:40] LABS: BUN (BLOOD UREA NITROGEN) 19 MG/DL (6-23)
[2016-09-08 04:01] LABS: BASOPHILS 0.3 %; BASOPHILS ABSOLUTE 0.02 10/3/uL (0.0-0.16); EOSINOPHILS 4.1 %; EOSINOPHILS ABSOLUTE 0.25 10/3/uL (0.0-0.53); HEMATOCRIT 30.7 % (36.0-48.0); HEMOGLOBIN 10.3 g/dL (12.0-16.0); IMMATURE GRANULOCYTES 0.2 %; IMMATURE GRANULOCYTES ABSOLUTE 0.01 10/3/uL (0.0-0.11); LYMPHOCYTES 37.4 %; LYMPHOCYTES ABSOLUTE 2.26 10/3/uL (0.67-4.30); MEAN CORPUS HGB CONC 33.6 g/dL (32.0-36.0); MEAN CORPUSCULAR HEMOGLOB 32.2 pg (26.0-34.0); MEAN CORPUSCULAR VOLUME 95.9 fL (80-100); MEAN PLATELET VOLUME 9.3 fL (9.2-13.0); MONOCYTES 9.9 %; NEUTROPHILS 48.1 %; PLATELET COUNT 169 10/3/uL (150-400); RBC DISTRIBUTION WIDTH 14.7 % (12.0-16.0)
[2016-09-08 04:13] LABS: MANUAL DIFF NO %
[2016-09-08 04:24] LABS: BUN (BLOOD UREA NITROGEN) 18 MG/DL (6-23); CALCIUM, SERUM 8.8 MG/DL (8.5-10.4); CHLORIDE, SERUM 106 MMOL/L (96-112); CO2 (CARBON DIOXIDE) 33 MMOL/L (24-34); CREATININE 1.22 MG/DL (0.55-1.02); GFR AFRICAN AMERICAN 47 ML/MIN (>=60); GFR NON AFRICAN AMERICAN 41 ML/MIN (>=60); GLUCOSE, SERUM 95 MG/DL (60-99); POTASSIUM, SERUM 3.8 MMOL/L (3.5-5.3); SODIUM, SERUM 144 MMOL/L (135-148)
[2016-09-08 04:30] LABS: PROTIME (NOT ORD) 30.5 SEC (12.0-14.5)
[2016-09-08] MEDS ORDERED: ELIQUIS 2.5 MG2.5 MG PO (17:01)
[2017-01-17] MEDS ORDERED: ELIQUIS 5 MG TAB5 MG PO (10:18)
[2017-01-17] MEDS ORDERED: VITAMIN D31000 UNIT PO (10:43)
[2017-01-17] MEDS ORDERED: LEVOTHYROXIN25 MCG PO (10:44)
[2017-01-17] MEDS ORDERED: LOP50 PO (10:46)
[2017-01-18] MEDS ORDERED: PLAVIX PO (16:21)
[2017-01-19] MEDS ORDERED: NITROSTAT0.4 MG SL (11:16)
== END 2016-09-08 17:13 | disposition home or self-care (01) | DRG 556 ==
LOC: ER 11:37 → CDU1 15:26
PROVIDERS: Hospitalist; Internal Medicine; Nurse Practitioner Family
DX: M79.81 Nontraumatic hematoma of soft tissue (principal); D68.32 Hemorrhagic disorder due to extrinsic circulating anticoagulants; I13.0 Hypertensive heart and chronic kidney disease with heart failure and stage 1 through stage 4 chronic kidney disease, or unspecified chronic kidney disease; I50.22 Chronic systolic (congestive) heart failure; D51.0 Vitamin B12 deficiency anemia due to intrinsic factor deficiency; N18.3 Chronic kidney disease, stage 3 (moderate); I25.5 Ischemic cardiomyopathy; I25.10 Atherosclerotic heart disease of native coronary artery without angina pectoris; E78.5 Hyperlipidemia, unspecified; I48.2 Chronic atrial fibrillation; T45.515A Adverse effect of anticoagulants, initial encounter; Z90.49 Acquired absence of other specified parts of digestive tract; Z95.5 Presence of coronary angioplasty implant and graft; Z79.01 Long term (current) use of anticoagulants; F17.210 Nicotine dependence, cigarettes, uncomplicated
CPT/HCPCS: 71010; 73090-LT; 73200-LT; 80048; 80053; 82272; 83735; 84145; 85025; 85610; 85730; 87040; 93971; 96374; 99285; A9270-GY; J2405